=== PATIENT | female | born 1990 | race African-American/Black ===

== ENCOUNTER 2022-09-06 20:00 | Inpatient (IN) | payer BC ==
[2022-09-07] MEDS ORDERED: Bupivacaine 0.25% 10 ML SDV EPIDUR ONE (12:40)
[2022-09-07] MEDS ORDERED: fentaNYL 100 MCG/2 ML SDV EPIDUR ONE (12:40)
[2022-09-08] MEDS ORDERED: Ibuprofen 600 MG Tab PO ONE (03:00)
[2022-10-08] MEDS ORDERED: Oxytocin/Lactated Ringers 10 UNIT/1,000 ML BAG IV ONE (06:20)
[2022-10-08] MEDS ORDERED: Lactated Ringers 1,000 ML IV ONE (12:30)
[2022-10-08] MEDS ORDERED: Misoprostol 200 MCG Tab PO ONE (21:28)
== END 2022-09-08 19:50 | disposition home or self-care (01) | DRG 560 ==
LOC: JD.OBCHECK 20:00 → JD.ZCENSUS 20:34 → OBSVTOIN 09-07 20:59
PROC: 10E0XZZ Delivery of Products of Conception, External Approach (ICD-10-PCS; principal; 2022-09-07)
DX: O70.0 First degree perineal laceration during delivery (principal); Z3A.39 39 weeks gestation of pregnancy; Z37.0 Single live birth
CPT/HCPCS: 01967; 36415; 51702; 59025; 59409; 85027; 86592; 86850; 86900; 86901; 87653; A9270-GY; J2590; J3010; J3490; J7120

== ENCOUNTER 2023-03-05 18:18 | Emergency (ER) | payer BC ==
[2023-03-05] MEDS ORDERED: Midazolam 1 MG/ML 2 ML SDV IVPUSH ONE (18:37)
[2023-03-05] MEDS ORDERED: Sodium Chloride 0.9% 10 ML Syringe FLUSH PRN (18:37)
[2023-03-05] MEDS ORDERED: fentaNYL 100 MCG/2 ML SDV IVPUSH ONE (18:38)
[2023-03-05] MEDS ORDERED: Ketorolac 30 MG/ML SDV IVPUSH ONE (18:45)
[2023-03-05] MEDS ORDERED: Ketamine 500 mg/10 ML MDV IV ONE (18:48)
[2023-03-05] MEDS ORDERED: ceFAZolin 2 GM in Sodium Chloride 0.9% 50 ML IV ONE (18:51)
[2023-03-05] MEDS ORDERED: HYDROmorphone 0.5 MG/0.5 ML Syringe IVPUSH ONE (20:11)
[2023-03-05] MEDS ORDERED: Diphtheria,Pertussis(Acell),Tetanus Vaccine 0.5 ML Syringe IM ONE (20:18)
[2023-03-05] MEDS ORDERED: Dextrose 5%-Lactated Ringers 1,000 ML IV SCH (20:30)
[2023-03-05] MEDS: HYDROmorphone 0.5 MG/0.5 ML Syringe IVPUSH PRN (23:15)
[2023-03-06] MEDS: HYDROmorphone 0.5 MG/0.5 ML Syringe IVPUSH PRN ×4 (01:15→09:15)
[2023-03-06] MEDS ORDERED: ceFAZolin 1 GM in Sodium Chloride 0.9% 50 ML IV SCH (04:00)
[2023-03-06] MEDS ORDERED: Ondansetron 4 MG/2 ML SDV IVPUSH ONE (06:48)
== END 2023-03-06 10:10 ==
LOC: JD.ED 18:18
DX: S82.851B Displaced trimalleolar fracture of right lower leg, initial encounter for open fracture type I or II (principal); Z23 Encounter for immunization; Z88.5 Allergy status to narcotic agent; W00.0XXA Fall on same level due to ice and snow, initial encounter
CPT/HCPCS: 27818; 73600; 90471; 90715; 96365; 96366; 96375; 96376; 99284; J0690; J1170; J2250; J2405; J3010; J3490; J7121; 29515; 99283